=== PATIENT | female | born 2005 | race Hispanic/Latino ===

== ENCOUNTER 2024-02-18 10:07 | Emergency (ER) | payer OTHER, SELFPAY ==
[2024-02-18 10:16] VITALS: BP 109/61
--- NOTE | 2024-02-18 11:49 | ED.GENMED ---
History of Present Illness
General
Chief Complaint: Musculo-Skeletal Complaint
Time Seen by Provider: 02/18/24 11:33
History of Present Illness
History of Present Illness:
18-year-old female presents the emergency department for evaluation of persistent anterior left shoulder pain for the past 3 weeks. Denies any injuries. Does not lift heavy objects at work. Pain is overlying the AC joint. Has not taken any
medications for pain control
Review of Systems
Review of Systems
Allergies reviewed?: Yes
All Other Systems: ROS reviewed and negative except as documented in HPI and ROS
Phy Exam
Physical Exam
Physical Exam:
GEN: Well appearing, NAD, WDWN
HEENT: Oral mucosa moist, no scleral icterus
Cardiac: Regular rate
Lung: No respiratory distress, no tachypnea
MSK: No gross deformity or injuries. Left shoulder range of motion is normal in all denson. There is mild pain elicited to the AC joint on palpation. No gross deformities. No crepitus or strength deficit, negative impingement sign
Skin: Good color, no pallor or jaundice, no rashes
Neuro: AO x3, moves all extremities freely
Psych: Calm, cooperative
Course
Orders/Labs/Results
Orders:
Orders
02/18/24 10:20
CR Shoulder - Left Min 2 View* Urgent
Comment:
Reason For Exam: pain for weeks
Vital Signs
Initial and Last Documented VS:
Initial Vital Signs
Temp Pulse Resp BP Pulse Ox
98.5 F 70 22 109/61 100
02/18/24 10:16 02/18/24 10:16 02/18/24 10:16 02/18/24 10:16 02/18/24 10:16
Last Documented Vital Signs
Temp Pulse Resp BP Pulse Ox
98.5 F 70 22 109/61 100
02/18/24 10:16 02/18/24 10:16 02/18/24 10:16 02/18/24 10:16 02/18/24 10:16
MDM/Problems Addressed
MDM/Problems Addressed:
Will start NSAIDs, x-ray showed no evidence for osseous abnormality
*Critical Care Note
Total Time (30-74mins, 75-104mins- exclusive of procedures): Not Applicable
ED Attending Note
-
Portions of this chart may have been created with voice recognition software.� Occasional wrong word or��sound alike� substitutions may have occurred due to the inherent limitations of voice recognition software.
Discharge Plan
Departure
Patient Disposition: Home (Routine Discharge)
Date of Disposition: 02/18/24
Time of Disposition: 11:50
Patient with high blood pressure during this ER visit?: No
Discharge Problem:
Acute pain of left shoulder
Instructions: Shoulder Sprain (DC)
Prescriptions:
New
diclofenac sodium 50 mg tablet,delayed release (DR/EC)
50 mg PO BID Qty: 20 0RF
Referrals:
UNKNOWN - PT DOES,NOT KNOW [Family Provider] -
Interventions
Interventions:
*Risk Screen - Suicide Last Done: 02/18/24 11:56
*General Assessment Last Done: 02/18/24 10:18
*Neglect/Abuse Screening Last Done: 02/18/24 11:56
ED- Fall Risk Assessment Last Done: 02/18/24 11:56
*ED COVID-19 Vaccine History Last Done: 02/18/24 10:18
*Nursing Disposition Last Done: 02/18/24 11:56
ED-Musculoskeletal Assessment Last Done: 02/18/24 11:25
Discharge Date and Time
Discharge Date/Time: 02/18/24 11:56
Print Language: ARMENIAN
== END 2024-02-18 11:56 | disposition home or self-care (01) ==
LOC: EMR 10:07
PROVIDERS: EMERGENCY PHYSICIAN Emergency Medicine
DX: M25.512 Pain in left shoulder (principal)
CPT/HCPCS: 99283; 73030

== ENCOUNTER 2024-05-01 10:48 | Emergency (ER) | payer OTHER, SELFPAY ==
[2024-05-01 10:54] VITALS: BP 128/72
[2024-05-01 11:39] LABS: % Basophils 0.6 % (0-2); % Eosinophils 3.3 % (0-6); % Immature Granulocytes 0.3 % (0-0.5); % Lymphocytes 29.4 % (20.5-51.1); % Monocytes 8.1 % (1.7-9.3); % Neutrophils 58.3 % (42.2-75.2); Absolute Eosinophils 0.2 10^3/uL (0-0.7); Absolute Lymphocytes 2.1 10^3/uL (1.2-3.4); Absolute Monocytes 0.6 10^3/uL (0.1-0.6); Absolute Neutrophils 4.1 10^3/uL (1.4-6.5); Hematocrit 33.8 % (37.0-47.0); Hemoglobin 11.7 g/dL (12.0-16.0); Mean Corp Hgb Conc. 34.6 g/dL (33.0-37.0); Mean Corpuscular Hgb 28.1 pg (27.0-31.0); Mean Corpuscular Volume 81.3 fL (81.0-99.0); Mean Platelet Volume 10.3 fL (7.4-10.4); Nucleated Red Blood Cells % 0 %; Platelet Count 291 10^3/uL (130-400); Red Blood Cell Count 4.16 10^6/uL (4.20-5.40); Red Cell Dist. Width 13.3 % (11.5-14.5)
--- NOTE | 2024-05-01 11:55 | ED.GENMED ---
History of Present Illness
General
Chief Complaint: Fainting Sensation
Source: patient
Exam Limitations: none
Time Seen by Provider: 05/01/24 11:12
Nursing documentation reviewed up to this point in time: agreed with
History of Present Illness
History of Present Illness:
18-year-old female with no chronic medical issues presents to the emergency room for evaluation of lightheadedness. Patient reports that she woke up today and while she was getting out of her loft bed she felt lightheaded. She says that symptoms
were transient, ate breakfast and drank some water thinking that symptoms could have been related to dehydration. While she was walking to class she said she had another episode of lightheadedness and decided to come to the emergency room to be
assessed. Currently she says that she feels well and has no complaints. She says she did not have any associated chest pain, shortness of breath, palpitations. She did not and does not have any headache, abdominal pain, flank pain. Last
menstrual period was 04/07/2024 she says no heavier than usual bleeding and she is not having any vaginal bleeding at present. She denies any similar symptoms in past, denies any cardiac history. She denies smoking, alcohol, drug use.
Review of Systems
Review of Systems
All Other Systems: ROS reviewed and negative except as documented in HPI and ROS
Constitutional: Denies fever or chills
EENT: Denies sore throat or runny nose
Respiratory: Denies cough or trouble breathing
Cardiac: Denies chest pain, diaphoresis or palpitations
ABD/GI: Denies abdominal pain, nausea or vomiting
: Denies flank pain
Musculoskeletal: Denies neck pain or back pain
Neurological: Reports dizzy; Denies headache
Phy Exam
Physical Exam
Physical Exam:
General: Awake, alert, oriented x3; no acute distress
Head: Normocephalic, atraumatic
Eyes: Conjunctiva normal, sclera anicteric
Throat: Airway intact, handling secretions
Neck: Trachea midline, supple without meningismus
Lungs: Clear to auscultation bilaterally, no wheezing, rales, rhonchi
Heart: Regular rate and rhythm, no murmurs, gallops, or rubs
Abd: Soft, non distended, nontender
Neuro: No gross deficits
Skin: no rash
Extremities: No edema in extremities, equal pulses in all extremities
Scores
Heart Failure Risk
Heart Failure Risk Score: Not Applicable
Heart Score for Chest Pain Patients
STEMI patient?: Not applicable
Withdrawal Assessment of Alcohol
Withdrawal Assessment Completed?: Not applicable
Course
Orders/Labs/Results
Orders:
Orders
05/01/24 11:16
Electrocardiogram (*1) Urgent
Reason for Study: Vertigo / Dizzy
EKG- Treatment ONCE
Test Result ONCE
05/01/24 11:25
Complete Blood Count/With Diff Urgent
Comprehensive Metabolic Panel Urgent
HCG, Serum Qualitative Screen Urgent
05/01/24 11:55
0.9% Sodium Chloride 500 ml [Nss] 500 ml IV BOLUS
Abnormal Lab Results
05/01/24
11:25
RBC 4.16 L 10^6/uL
(4.20-5.40)
Hgb 11.7 L g/dL
(12.0-16.0)
Hct 33.8 L %
(37.0-47.0)
Chloride 108 H mmol/L
(98-107)
05/01/24 11:25
05/01/24 11:25
Vital Signs
Initial and Last Documented VS:
Initial Vital Signs
Temp Pulse Resp BP Pulse Ox
37.0 C 81 16 128/72 97
05/01/24 10:54 05/01/24 10:54 05/01/24 10:54 05/01/24 10:54 05/01/24 10:54
Last Documented Vital Signs
Temp Pulse Resp BP Pulse Ox
37.0 C 99 16 117/67 99
05/01/24 10:54 05/01/24 12:15 05/01/24 12:15 05/01/24 12:00 05/01/24 12:15
MDM/Problems Addressed
Differential Diagnosis Includes:
Dehydration, anemia, dysrhythmia, vasovagal symptoms
MDM/Problems Addressed:
18-year-old female presents after 2 episodes of transient lightheadedness as described above. Asymptomatic here. Vital signs normal. Physical exam as above. Will check an EKG. Check basic screening labs. Check an hCG. Monitor on telemetry and
provide some fluids. Reassess after the above.
EKG reviewed�normal sinus rhythm with a rate of 74, no ectopy, no delta wave, no Brugada, normal QTc. No acute ischemic changes. Continue to monitor.
Labs reviewed: CBC shows marginal anemia at 11.7 unlikely of acute clinical significance. CMP no clinically significant abnormalities. hCG negative. Patient well-appearing on clinical reassessment, feeling well with no complaints, vitals have
been stable on the monitor. Could be some mild dehydration or orthostatic symptoms. Stable for discharge, will provide cardiology referral for outpatient follow-up for completeness. All questions answered.
*Pulse Oximetry
Patient hypoxic: no
*EKG
Interpreted by ED Provider?: Yes
Heart Rate: 74
Rate: normal
Rhythm: sinus
Renfrew: normal axis
Interval: normal interval and normal QT interval
QRS Pattern: normal QRS
Ischemia: no ischemia
*Critical Care Note
Total Time (30-74mins, 75-104mins- exclusive of procedures): Not Applicable
Data Reviewed
Source: patient
ED Attending Note
-
Portions of this chart may have been created with voice recognition software.� Occasional wrong word or��sound alike� substitutions may have occurred due to the inherent limitations of voice recognition software.
Discharge Plan
Departure
Patient Disposition: Home (Routine Discharge)
Date of Disposition: 05/01/24
Time of Disposition: 12:48
Patient with high blood pressure during this ER visit?: No
Discharge Problem:
Lightheadedness
Instructions: Near Fainting (DC)
Prescriptions:
No Action
diclofenac sodium 50 mg tablet,delayed release (DR/EC)
50 mg PO BID Qty: 20 0RF
Referrals:
Aide Hardin MD [Active] - Call in 1-3 days for appt
Activity Restrictions/Additional Instructions:
Thank you for visiting the Emergency Department at [facility].
1. Please schedule a follow up appointment as directed. Call first thing tomorrow morning to make an appointment.
2. If indicated, please take your medications as instructed and indicated on discharge paperwork.
3. If any of your symptoms do not improve, or persist, or become more severe within 6-12 hours, please return to the emergency department for further care.
4. Please return to the emergency department if you develop a headache, neck pain/stiffness, fever greater than 100.4F, chest pain, shortness of breath, persistent nausea, vomiting, slurred speech, difficulty walking, numbness/tingling, weakness,
signs of infection or any other symptoms that are worrisome to you.
Please call [phone] if you have any questions.
Interventions
Interventions:
*Risk Screen - Suicide Last Done: 05/01/24 10:54
*General Assessment Last Done: 05/01/24 10:54
*Neglect/Abuse Screening Last Done: 05/01/24 10:54
ED- Cardiac Assessment Last Done: 05/01/24 11:53
ED- Neurological Assessment Last Done: 05/01/24 11:53
Discharge Date and Time
Print Language: ZAMBIAN
[2024-05-01 11:57] LABS: ALT (SGPT) 16 U/L (0-35); AST (SGOT) 22 U/L (14-36); Albumin 4.1 g/dl (3.5-5.0); Alkaline Phosphatase 87 U/L (38-126); Blood Urea Nitrogen 17 mg/dl (7-17); Calcium 9.2 mg/dl (8.4-10.2); Carbon Dioxide 22 mmol/L (22-30); Chloride 108 mmol/L (98-107); Glucose 90 mg/dl (70-99); HCG, Serum Qualitative Screen Negative; Potassium 4.3 mmol/L (3.5-5.1); Sodium 140 mmol/L (135-145); Total Bilirubin 0.3 mg/dl (0.2-1.3); Total Protein 6.8 g/dl (6.3-8.2); eGFR > 60.00
[2024-05-01] MEDS: NSS 500 IV (11:57)
[2024-05-01 12:00] VITALS: BP 117/67
[2024-05-01 12:36] VITALS: BP 113/54
== END 2024-05-01 13:14 | disposition home or self-care (01) ==
LOC: EMR 10:48
PROVIDERS: EMERGENCY PHYSICIAN Emergency Medicine
DX: R42 Dizziness and giddiness (principal)
CPT/HCPCS: 99284; 96360; 80053; 84703; 85025; 93005

== ENCOUNTER 2024-08-19 03:28 | Emergency (ER) | payer OTHER, SELFPAY ==
[2024-08-19 03:30] VITALS: BP 118/72
[2024-08-19 05:49] VITALS: BMI 38.6
[2024-08-19 05:50] VITALS: BP 118/69
--- NOTE | 2024-08-19 06:18 | ED.GENMED ---
History of Present Illness
<Eric Lopez DO, Resident - Last Filed: 08/19/24 06:42>
General
Chief Complaint: Cough
Source: patient
Time Seen by Provider: 08/19/24 06:05
History of Present Illness
History of Present Illness:
19-year-old female with a past medical history of asthma presents with cough and viral URI symptoms of approximately 3 days in duration. Patient noted that last night around 11 and this morning at 2 she had some hemoptysis, blood-tinged mucus,
which prompted her to present to the ED. Patient reports not taking any medications daily, her asthma is well-controlled. In the ED vitals are within normal limits, patient afebrile.
Past History
<Eric Lopez DO, Resident - Last Filed: 08/19/24 06:42>
Past History
ED Past Medical History: Asthma
Review of Systems
<Eric Lopez DO, Resident - Last Filed: 08/19/24 06:42>
Review of Systems
Constitutional: Reports no symptoms; Denies fever
EENT: Reports runny nose
Respiratory: Reports cough, hemoptysis and trouble breathing (Reports some shortness of breath wheezing coughing spell)
Cardiac: Reports no symptoms
ABD/GI: Reports no symptoms
: Reports no symptoms
Musculoskeletal: Reports no symptoms
Phy Exam
<Eric Lopez DO, Resident - Last Filed: 08/19/24 06:42>
General Physical Exam
General Presentation: well appearing and no apparent distress
General age: appears stated age
General Skin: warm and dry
ENT Exam
ENT Exam: pharynx normal and other (Nasal mucosa appears normal)
Cardiovascular Exam
Cardiovascular Exam: regular rate/rhythm, no edema and no murmur
Pulmonary Exam
Pulmonary Exam: lungs clear, no respiratory distress, no rales, no crackles, no rhonchi and no wheezing
Gastrointestinal Exam
Gastrointestinal Exam: non tender, soft and non distended
Course
<Eric Lopez DO, Resident - Last Filed: 08/19/24 06:42>
Orders/Labs/Results
Orders:
Orders
08/19/24 05:37
CR Chest - 2 Views Urgent
Comment:
Reason For Exam: cough, hemoptysis
Vital Signs
Initial and Last Documented VS:
Initial Vital Signs
Temp Pulse Resp BP Pulse Ox
98.1 F 85 18 118/72 99
08/19/24 03:30 08/19/24 03:30 08/19/24 03:30 08/19/24 03:30 08/19/24 03:30
Last Documented Vital Signs
Temp Pulse Resp BP Pulse Ox
98.2 F 62 16 118/69 99
08/19/24 05:50 08/19/24 05:50 08/19/24 05:50 08/19/24 05:50 08/19/24 05:50
<Eduin Pérez DO - Last Filed: 08/19/24 06:35>
Orders/Labs/Results
Orders:
Orders
08/19/24 05:37
CR Chest - 2 Views Urgent
Comment:
Reason For Exam: cough, hemoptysis
Vital Signs
Initial and Last Documented VS:
Initial Vital Signs
Temp Pulse Resp BP Pulse Ox
98.1 F 85 18 118/72 99
08/19/24 03:30 08/19/24 03:30 08/19/24 03:30 08/19/24 03:30 08/19/24 03:30
Last Documented Vital Signs
Temp Pulse Resp BP Pulse Ox
98.2 F 62 16 118/69 99
08/19/24 05:50 08/19/24 05:50 08/19/24 05:50 08/19/24 05:50 08/19/24 05:50
<Eric Lopez DO, Resident - Last Filed: 08/19/24 06:42>
MDM/Problems Addressed
Differential Diagnosis Includes:
Viral URI, bronchitis, hemoptysis secondary to mucosal airway abrasion
MDM/Problems Addressed:
19 female past medical history of asthma, well-controlled. Currently takes no medications daily
Approximately 3 days of viral URI symptoms with new associated blood-tinged mucus, 2 episodes overnight. No episodes in the emergency department.
Likely hemoptysis is secondary to mucosal airway trauma from coughing/viral illness
Patient afebrile, blood pressure within normal limits
Has no known sick contacts
Lungs clear to auscultation, no wheezing
2 view chest x-ray did not show any opacities
Patient stable for discharge
Will provide work excuse note
<Eric Lopze DO, Resident - Last Filed: 08/19/24 06:42>
*Critical Care Note
Total Time (30-74mins, 75-104mins- exclusive of procedures): Not Applicable
ED Attending Note
<Eric Lopez DO, Resident - Last Filed: 08/19/24 06:42>
-
Portions of this chart may have been created with voice recognition software.� Occasional wrong word or��sound alike� substitutions may have occurred due to the inherent limitations of voice recognition software.
<Eduin Pérez, - Last Filed: 08/19/24 06:35>
ED Attending Note
Patient seen and examined by attending physician: Yes
I performed a history and physical exam of patient and discussed management with resident, I reviewed resident's note and agree with documented findings and plan of care.: Yes
ED Attending Note:
I reviewed and agree with history and treatment plan by Eric Lopez DO. My exam revealed
Physical Exam
General: no apparent distress, not acutely ill
Neck: supple. no meningeal signs. normal posterior pharynx
Heart: s1/s2 regular rate and rhythm, no murmur. equal radial
pulses.
HEENT: Pupils equal round reactive to light, EOMI
Lungs: no acute respiratory distress. clear bilaterally
Abdomen: normal bowel sounds. not tender. no CVAT
Neuro: alert and oriented. no focal neurological deficits cranial nerves II through XII intact
Skin: no rash
Psychiatric: well kept. interactive and cooperative
Extremities: no edema. no calf tenderness. negative homans. good distal pulses
19-year-old female with upper respiratory infection versus bronchitis. Episode of hemoptysis. Blood-tinged sputum. Do not suspect DVT or pulmonary embolism. No lung mass seen. Stable for discharge.
Discharge Plan
Departure
Patient Disposition: Home (Routine Discharge)
Date of Disposition: 08/19/24
Time of Disposition: 06:37
Patient with high blood pressure during this ER visit?: No
Condition: Good
Discharge Problem:
Acute bronchitis
Instructions: Acute Bronchitis, Adult (DC), Cough, Adult (DC)
Prescriptions:
No Action
No Current Medications
0
Referrals:
NONE,* [Family Provider] -
Stand Alone Forms: Return to Work
Activity Restrictions/Additional Instructions:
Please call your primary care provider in 1 to 3 days to schedule a follow-up appointment
Please use [id number] Mucinex as needed for cough
Please return emergency department if you notice worsening of your cough and symptoms or with any concerns
Interventions
Interventions:
*Risk Screen - Suicide Last Done: 08/19/24 03:30
*General Assessment Last Done: 08/19/24 03:30
*Neglect/Abuse Screening Last Done: 08/19/24 03:30
ED- Fall Risk Assessment Last Done: 08/19/24 05:50
*ED COVID-19 Vaccine History Last Done: 08/19/24 03:30
ED- Pulmonary Assessment Last Done: 08/19/24 05:50
Discharge Date and Time
Print Language: BURUNDIAN
== END 2024-08-19 06:45 | disposition home or self-care (01) ==
LOC: EMR 03:28
PROVIDERS: EMERGENCY PHYSICIAN Emergency Medicine
DX: J20.9 Acute bronchitis, unspecified (principal); J45.909 Unspecified asthma, uncomplicated
CPT/HCPCS: 99283; 71046